=== PATIENT | female | born 1965 | race Caucasian/White ===

== ENCOUNTER 2019-02-07 08:43 | Emergency (ER) | payer OTHER ==
[~2019-02-07] VITALS: Ht 165.1 cm; Wt 84.4 kg
[2019-02-07] MEDS ORDERED: IBUP-1022 PO (08:47)
--- NOTE | 2019-02-07 10:29 | REP ---
Right knee series: Five views. History: Right knee pain. Findings: Five views right knee demonstrate diffuse osteopenia. There is osteoarthritic narrowing of the medial compartment and to a lesser extent lateral compartment of the knee joint. There is patellofemoral narrowing and spur formation. Reactive sclerosis is visible on either side of the medial compartment along with spurring and subcortical cyst formation. I cannot exclude a small joint effusion. No fractures seen. Impression: No fracture or other acute bony abnormality is noted. Moderate three compartment osteoarthritic change in the knee most pronounced in the medial compartment. Question joint effusion. Osteoporosis. Electronically Signed by Bipin Richey MD 02/07/2019 10:20 A
[2019-02-07 10:48] VITALS: BP 152/90
== END 2019-02-07 11:19 | disposition home or self-care (01) ==
LOC: M ED 08:43
DX: M17.11 Unilateral primary osteoarthritis, right knee (principal); M81.0 Age-related osteoporosis without current pathological fracture; M25.461 Effusion, right knee; J45.909 Unspecified asthma, uncomplicated; L30.9 Dermatitis, unspecified; Z88.1 Allergy status to other antibiotic agents

== ENCOUNTER → 2019-11-25 | Outpatient (REF) | payer OTHER ==
[~2019-11-25] MED LIST: IBUP-1022 PO
== END ==
LOC: M WUC 16:53
PROVIDERS: ATTEND Physician Assistant
DX: L72.3 Sebaceous cyst (principal); L02.11 Cutaneous abscess of neck

== ENCOUNTER → 2024-01-29 | Outpatient (CLI) | payer OTHER ==
[2024-01-29 14:58] LABS: BASO % 0.5 % (0.0-1.0); EOS # 0.2 10^3/uL (0.0-0.5); EOS % 2.4 % (0.0-3.0); HEMATOCRIT 46.6 % (36.0-47.0); HEMOGLOBIN 15.1 g/dl (12.0-15.5); LYMPH # 2.3 10^3/uL (1.5-5.0); LYMPH % 28.2 % (24.0-44.0); MEAN CORPUSCULAR HEMOGLOBIN 27.4 pg (27.0-33.0); MEAN CORPUSCULAR HGB CONC 32.4 g/dl (32.0-36.5); MEAN CORPUSCULAR VOLUME 84.4 fl (80.0-96.0); MONO # 0.6 10^3/uL (0.0-0.8); MONO % 7.6 % (2.0-8.0); NEUTROPHILS # 4.9 10^3/uL (1.5-8.5); NEUTROPHILS % 60.9 % (36.0-66.0); PLATELET COUNT, AUTOMATED 360 10^3/uL (150-450); RED BLOOD COUNT 5.52 10^6/uL (4.00-5.40)
[2024-01-29 15:12] LABS: INR 1.04; PARTIAL THROMBOPLASTIN TIME 31.8 SECONDS (24.8-34.2); PROTHROMBIN TIME 13.9 SECONDS (12.5-14.5)
[2024-01-29 15:22] LABS: ALKALINE PHOSPHATASE 134 U/L (35-104); ALT/SGPT 19 U/L (7.0-40); AST/SGOT 15 U/L (<34); BILIRUBIN,TOTAL 0.5 MG/DL (0.3-1.2); BLOOD UREA NITROGEN 19 MG/DL (9-23); CARBON DIOXIDE LEVEL 27 MMOL/L (20-31); CHLORIDE LEVEL 110 MMOL/L (98-107); CREATININE FOR GFR 0.77 MG/DL (0.55-1.30); GLOMERULAR FILTRATION RATE > 60.0 (>51); GLUCOSE, FASTING 80 MG/DL (60-100); IRON (FE) 39 UG/DL (50-170); PERCENT SATURATION 11.9 % (13.2-45.0); POTASSIUM SERUM 4.4 MMOL/L (3.5-5.1); SODIUM LEVEL 142 MMOL/L (136-145); TOTAL IRON BINDING CAPACITY 329 UG/DL (250-425); TOTAL PROTEIN 8.1 G/DL (5.7-8.2)
[2024-01-29 15:24] LABS: FERRITIN 31.9 NG/ML (7.3-270.7)
== END ==
LOC: M LAB 14:20
PROVIDERS: ATTEND Orthopaedic Surgery
DX: Z01.818 Encounter for other preprocedural examination (principal); M17.11 Unilateral primary osteoarthritis, right knee; M25.561 Pain in right knee